=== PATIENT | male | born 1975 | race Two or more races ===

== ENCOUNTER 2024-07-03 06:25 | Day surgery (SDC) | payer OTHER ==
[2024-07-03] MEDS ORDERED: DIPHENHYDRAMINE HCL 50 MG/ML VIAL 1ML IV ONE (13:00)
[2024-07-03] MEDS ORDERED: MIDAZOLAM HCL 2 MG/2 ML VIAL IV ONE (13:00)
[2024-07-03] MEDS ORDERED: fentaNYL CITRATE 50 MCG/ML AMPUL IV PUSH ONE (13:00)
== END 2024-07-03 13:05 | disposition home or self-care (01) ==
LOC: AMB-ENDOS 06:25 → CIR.AMB 11:45 → AMB-ENDOS 13:05
PROVIDERS: ATTEND Surgery
DX: D12.5 Benign neoplasm of sigmoid colon (principal)